=== PATIENT | male | born 1955 | race Two or more races ===

== ENCOUNTER 2019-05-13 21:52 | Inpatient (IN) | payer BC ==
[~2019-05-13] VITALS: Ht 180.3 cm; Wt 83.1 kg
[~2019-05-13 21:52] MED LIST: FLUO20CA19 OR; GABA600T PO; LAM100T PO; LAMO200T2 OR; NOR10T GT
[2019-05-14] MEDS ORDERED: MORPHINE SULFATE 10 MG/ML INJ 1ML SDV IM ONE ×2 (03:00→05:45)
[2019-05-14] MEDS ORDERED: VANCOMYCIN 1GM/250ML 250 ML IV ONE (03:00)
[2019-05-14 03:33] LABS: Basophils # (auto) 0 uL; Basophils % (auto) 0.2 % (0.0-2.0); Eosinophils # (auto) 0 uL; Eosinophils % (auto) 0.3 % (0.0-7.0); Hematocrit 38.5 % (41.0-53.0); Hemoglobin 13.4 g/dL (13.5-17.5); Lymphocytes # (auto) 0.5 uL; Lymphocytes % (auto) 4.8 % (10.0-50.0); Mean Corpuscular Hemoglobin 35.1 pg (28.0-32.0); Mean Corpuscular Hgb Conc. 34.9 g/dL (32.0-36.0); Mean Corpuscular Volume 100.7 fL (80.0-100.0); Monocytes # (auto) 0.8 uL; Monocytes % (auto) 8.3 % (0.0-12.0); Neutrophils # (auto) 8.4 uL; Neutrophils % (auto) 86.4 % (37.0-80.0); Platelet Count (auto) 242 10^3/uL (140-450); Red Blood Cells 3.83 10^6/uL (4.5-5.90); Red Cell Distribution Width 12.5 % (11.8-14.3); White Blood Cell 9.7 10^3/uL (4.4-10.8)
[2019-05-14 03:46] LABS: Albumin 3.5 g/dL (3.4-5.0); BUN/Creatinine Ratio 16.5; Potassium 3.8 mmol/L (3.5-5.1)
[2019-05-14 03:47] LABS: INR 1.01 (0.9-1.15)
[2019-05-14 03:49] LABS: Bilirubin, Total 0.9 mg/dL (0.2-1.0)
[2019-05-14] MEDS ORDERED: IOHEXOL 300 MG/ML 100ML BOTTLE IJ ONE (05:12)
[2019-05-14] MEDS ORDERED: ONDANSETRON HCL 4 MG/2 ML VIAL IV ONE (05:45)
[2019-05-14] MEDS: SODIUM CHLORIDE 0.9% 1,000 ML IV SCH (07:35)
[2019-05-14] MEDS ORDERED: ONDANSETRON HCL 4 MG/2 ML VIAL IV PRN (07:45)
[2019-05-14] MEDS ORDERED: VANCOMYCIN PER PHARMACY 0 MG IV SCH (07:45)
[2019-05-14] MEDS ORDERED: ACETAMINOPHEN 325 MG TAB PO PRN (07:45)
[2019-05-14] MEDS ORDERED: MORPHINE SULFATE 4 MG/ML SYR/VIAL IV PRN (07:45)
[2019-05-14] MEDS ORDERED: DOCUSATE SOD 100 MG CAP PO PRN (07:45)
[2019-05-14] MEDS ORDERED: HYDROcodone-ACET 5/325MG TAB PO PRN (07:45)
[2019-05-14 09:37] VITALS: BP 110/61
[2019-05-14] MEDS ORDERED: OME20T PO (09:44)
[2019-05-14 13:00] VITALS: BP 100/58
[2019-05-14] MEDS: PIPERACILLIN-TAZOB 3.375GM 100 ML IV SCH ×2 (13:53→22:09)
[2019-05-14] MEDS ORDERED: HYDR-392 PO (14:47)
[2019-05-14] MEDS ORDERED: TRAZ150T79 PO (14:47)
[2019-05-14] MEDS ORDERED: IBUP800T24 PO (14:47)
[2019-05-14] MEDS ORDERED: DULO30CA PO (14:47)
--- NOTE | 2019-05-14 15:13 | NUR ---
Declining Pod. consult Patient came in with cellulitis. 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 He is seen regularly by a Operations And Maintenance Supervisor outpatient (Dr. Guevara at [facility]). Dr. Velasco saw the patient today and put in a consult for a lecturer of portuguese (Dr. Alatorre). The patient's is currently here visiting and stated they would like to cancel the podiatry consult because they already have a lecturer of portuguese following him and don't want to get charged for the consult. She said that he is here due to the cellulitis and getting antibiotics. This nurse notified the community health education coordinator, Nina, of patient's [facility] and to tell Dr. Alatorre not to see the patient.
[2019-05-14] MEDS: HYDROcodone-ACET 7.5/325MG TAB PO PRN (15:24)
[2019-05-14 17:00] VITALS: BP 109/62
[2019-05-14] MEDS: VANCOMYCIN 1GM/250ML 250 ML IV SCH (17:57)
--- NOTE | 2019-05-14 21:06 | NUR ---
HOSPITALIST CHARLIE REGARDING ELEVATED BLOOD PRESSURE 159/124, HR 63. NO PRN OR SCHEDULED BLOOD PRESSURE MEDICATION ORDERED. Addendum: 05/14/19 at 2107 by Denise Morales RN WRONG PATIENT
--- NOTE | 2019-05-14 21:07 | NUR ---
HOSPITALIST PAGED PATIENT REQUESTING EXTRA DOSE OF NORCO.
[2019-05-14 21:24] VITALS: BP 112/64
[2019-05-14] MEDS ORDERED: lamoTRIgine 100 MG TAB PO SCH (22:00)
[2019-05-14] MEDS ORDERED: HYDROcodone-ACET 5/325MG TAB PO ONE (22:00)
[2019-05-14] MEDS ORDERED: traZODone HCL 50 MG TAB PO SCH (22:00)
[2019-05-14] MEDS: GABAPENTIN 400 MG CAP PO SCH (22:08)
[2019-05-14] MEDS: IBUPROFEN 800 MG TAB PO PRN (22:11)
[2019-05-15] MEDS: SODIUM CHLORIDE 0.9% 1,000 ML IV SCH ×2 (00:15→17:47)
[2019-05-15] MEDS: VANCOMYCIN 1GM/250ML 250 ML IV SCH (04:43)
[2019-05-15 05:30] VITALS: BP 97/58
[2019-05-15] MEDS: PIPERACILLIN-TAZOB 3.375GM 100 ML IV SCH ×2 (06:18→14:57)
[2019-05-15] MEDS: GABAPENTIN 400 MG CAP PO SCH ×2 (06:18→14:57)
--- NOTE | 2019-05-15 06:19 | NUR ---
PATIENT SLEPT THROUGHOUT NIGHT WITH NO S/S OF DISTRESS NOTED. NO COMPLAINTS OF PAIN AT THIS TIME.
[2019-05-15 09:00] VITALS: BP 98/65
[2019-05-15] MEDS ORDERED: DULoxetine HCL 30 MG CAP PO SCH (10:00)
[2019-05-15] MEDS ORDERED: PANTOPRAZOLE 40 MG TAB PO SCH (10:00)
[2019-05-15] MEDS: IBUPROFEN 800 MG TAB PO PRN ×2 (10:43→18:24)
[2019-05-15] MEDS: HYDROcodone-ACET 7.5/325MG TAB PO PRN ×2 (10:44→18:24)
--- NOTE | 2019-05-15 12:00 | NUR ---
saw pt/discharge this evening Dr. Velasco saw the patient and discussed discharge with oral antibiotics. Patient and spouse (a nurse practitioner) agreed but expressed concern that they wanted him to stay the rest of the day to receive the day's antibiotics. He has Zosyn at 1400 and Vancomycin at 1700. Will discharge patient after the Vancomycin.
[2019-05-15 13:00] VITALS: BP 102/59
[2019-05-15 17:00] VITALS: BP 102/69
[2019-05-15] MEDS ORDERED: VANCOMYCIN 1GM/250ML 250 ML IV SCH (17:00)
--- NOTE | 2019-05-15 18:43 | NUR ---
Discharge Went over discharge paperwork with patient. Prescription given to spouse to fill. Antibiotics done running. Removed IV. Removed ID band. Patient's at bedside.
== END 2019-05-15 19:10 | disposition home or self-care (01) | DRG 603 ==
LOC: ER 21:54 → OVERFLOW 21:55 → EAST 05-14 08:57
PROVIDERS: ADMIT Hospitalist; ATTEND Hospitalist
DX: L03.116 Cellulitis of left lower limb (principal); G62.9 Polyneuropathy, unspecified; L02.416 Cutaneous abscess of left lower limb; Z87.39 Personal history of other diseases of the musculoskeletal system and connective tissue; Z88.8 Allergy status to other drugs, medicaments and biological substances
CPT/HCPCS: 36415; 73630; 73701; 80053; 80202; 82962; 83605; 84550; 85025; 85610; 87040; 93925; 93971; 96365; 96372; 96375; G0378; J2405; J2543

== ENCOUNTER 2023-03-15 10:41 | Inpatient (IN) | payer MEDICARE, BC ==
[~2023-03-15] VITALS: Ht 180.3 cm; Wt 164.2 kg
[~2023-03-15 10:41] MED LIST changes: +DULO30CA PO; -FLUO20CA19 OR; +HYDR-392 PO; +IBUP-1456 PO; -LAMO200T2 OR; -NOR10T GT; +OME20T PO; +TRAZ1TAB12 PO
[2023-03-15] MEDS ORDERED: SODIUM CHLORIDE 0.9% 1,000 ML IV ONE (11:00)
[2023-03-15] MEDS ORDERED: cefTRIAXone 1GM/50ML D5W 50 ML IV ONE (11:00)
[2023-03-15] MEDS ORDERED: levoFLOXacin 500MG 100 ML IV ONE (11:00)
[2023-03-15 11:15] LABS: Basophils # (auto) 0 10 ^3/uL (0-0.2); Basophils % (auto) 0.2 % (0.0-2.0); Eosinophils # (auto) 0 10 ^3/uL (0-0.8); Eosinophils % (auto) 0.6 % (0.0-7.0); Hematocrit 32.7 % (41.0-53.0); Hemoglobin 10.9 g/dL (13.5-17.5); Lymphocytes # (auto) 0.5 10 ^3/uL (0.4-5.4); Lymphocytes % (auto) 7.2 % (10.0-50.0); Mean Corpuscular Hemoglobin 31.8 pg (28.0-32.0); Mean Corpuscular Hgb Conc. 33.2 g/dL (32.0-36.0); Mean Corpuscular Volume 95.7 fL (80.0-100.0); Monocytes # (auto) 0.7 10 ^3/uL (0-1.3); Neutrophils # (auto) 5.7 10 ^3/uL (1.6-8.6); Nucleated Red Blood Cells % 0.1 %; Red Blood Cells 3.42 10^6/uL (4.5-5.90); Red Cell Distribution Width 14.5 % (11.8-14.3)
[2023-03-15 11:35] LABS: Alanine Aminotransferase 16 U/L (7-40); Albumin 3.8 g/dL (3.2-4.8); Alkaline Phosphatase 134 U/L (46-116); Anion Gap 6 (5-15); Aspartate Aminotransferase 30 U/L (13-40); BUN/Creatinine Ratio 13.4 (10.0-20.0); Blood Urea Nitrogen 15 mg/dL (9-23); Calcium 8.6 mg/dL (8.7-10.4); Carbon Dioxide 25 mmol/L (20-30); Chloride 108 mmol/L (98-107); Glucose 144 mg/dL (74-106); Magnesium 2.2 mg/dL (1.6-2.6); Potassium 4.2 mmol/L (3.5-5.1); Sodium 139 mmol/L (136-145)
[2023-03-15 11:36] LABS: Bilirubin, Total 0.8 mg/dL (0.2-1.0); Total Protein 6.1 g/dL (5.7-8.2)
[2023-03-15 11:56] LABS: Urine Bacteria NONE SEEN /hpf (None Seen); Urine Blood Negative /uL (Negative); Urine Clarity Clear (Clear); Urine Color Yellow (Yellow); Urine Hyaline Cast FEW /lpf (0 - 2); Urine Mucus FEW (None Seen); Urine Protein, UAD 2+ (Negative); Urine Specific Gravity 1.041 (1.001-1.035); Urine WBC 2 /hpf (0 - 3); Urine pH 6.5 (5.0-8.0)
[2023-03-15 12:14] LABS: COVID19 ANTIGEN SOFIA FIA NEGATIVE (NEGATIVE); Rapid Influenza A Negative (Negative); Rapid Influenza B Negative (Negative)
[2023-03-15] MEDS ORDERED: ACETAMINOPHEN 325 MG TAB PO PRN (15:30)
[2023-03-15] MEDS ORDERED: ONDANSETRON HCL 4 MG/2 ML VIAL IV PRN (15:30)
[2023-03-15] MEDS ORDERED: DOCUSATE SOD 100 MG CAP PO PRN (15:30)
[2023-03-15] MEDS ORDERED: LURA1TAB PO (15:50)
[2023-03-15] MEDS ORDERED: HYDR-4069 PO (15:50)
[2023-03-15] MEDS ORDERED: TRAZ-228 PO (15:50)
[2023-03-15] MEDS ORDERED: ATOM40CA6 PO (15:50)
[2023-03-15] MEDS ORDERED: LAMO200T34 PO (15:50)
[2023-03-15] MEDS ORDERED: HYDR1CAP27 PO (15:50)
[2023-03-15] MEDS ORDERED: LURA60TA PO (15:50)
[2023-03-15] MEDS ORDERED: PRAZ2CAP2 PO (15:50)
[2023-03-15] MEDS ORDERED: GABA-339 PO (15:50)
[2023-03-15 15:56] VITALS: BP 99/67; PULSE 68; RESP 20; TEMP 98.8; O2SAT 87
[2023-03-15] MEDS ORDERED: IOHEXOL 350 MG/ML 100ML IJ ONE (17:30)
[2023-03-15] MEDS: LURASIDONE HYDROCHLORIDE 60 MG PO SCH (18:00)
[2023-03-15 18:21] VITALS: PULSE 70; RESP 20; O2SAT 94
[2023-03-15] MEDS: IPRATROPIUM BROM 0.5 MG/2.5ML INH SOL NEB SCH (18:21)
[2023-03-15] MEDS: ALBUTEROL MEDNEB 2.5 mg/3ml NEB NEB SCH (18:21)
[2023-03-15 18:29] VITALS: PULSE 72; RESP 18; O2SAT 99
[2023-03-15 20:30] VITALS: PULSE 74; RESP 28; O2SAT 93
[2023-03-15 21:00] VITALS: BP 102/63; PULSE 73; RESP 15; TEMP 98.2; O2SAT 94
[2023-03-15] MEDS: GABAPENTIN 400 MG CAP PO SCH (21:20)
[2023-03-15] MEDS: hydrOXYzine 25 MG TAB or CAP PO SCH (21:20)
[2023-03-15] MEDS: lamoTRIgine 100 MG TAB PO SCH (21:21)
[2023-03-15] MEDS: DOXYCYCLINE 100MG/250ML 250 ML IV SCH (21:33)
[2023-03-15 22:00] VITALS: BP 102/63; PULSE 73; RESP 18; TEMP 98.2; O2SAT 93
[2023-03-15] MEDS: traZODone HCL 50 MG TAB PO SCH (22:53)
[2023-03-16] VITALS (16 sets, daily range): BP systolic 100–124; BP diastolic 56–66; PULSE 71–85; RESP 17–22; TEMP 98.1–99.8; O2SAT 91–99
[2023-03-16] MEDS: GABAPENTIN 400 MG CAP PO SCH ×3 (05:40→21:51)
[2023-03-16] MEDS: ALBUTEROL MEDNEB 2.5 mg/3ml NEB NEB SCH ×3 (07:03→21:59)
[2023-03-16] MEDS: IPRATROPIUM BROM 0.5 MG/2.5ML INH SOL NEB SCH ×3 (07:03→22:00)
[2023-03-16 07:12] LABS: Basophils # (auto) 0 10 ^3/uL (0-0.2); Basophils % (auto) 0.3 % (0.0-2.0); Eosinophils # (auto) 0.1 10 ^3/uL (0-0.8); Eosinophils % (auto) 1.1 % (0.0-7.0); Hematocrit 31.2 % (41.0-53.0); Hemoglobin 10.4 g/dL (13.5-17.5); Lymphocytes # (auto) 0.5 10 ^3/uL (0.4-5.4); Mean Corpuscular Hemoglobin 31.8 pg (28.0-32.0); Mean Corpuscular Hgb Conc. 33.3 g/dL (32.0-36.0); Mean Corpuscular Volume 95.6 fL (80.0-100.0); Monocytes # (auto) 0.9 10 ^3/uL (0-1.3); Monocytes % (auto) 11.4 % (0.0-12.0); Neutrophils # (auto) 6.2 10 ^3/uL (1.6-8.6); Neutrophils % (auto) 80.2 % (37.0-80.0); Nucleated Red Blood Cells % 0.1 %; Red Blood Cells 3.26 10^6/uL (4.5-5.90); Red Cell Distribution Width 14.2 % (11.8-14.3); White Blood Cell 7.7 10^3/uL (4.4-10.8)
[2023-03-16 07:50] LABS: Alanine Aminotransferase 17 U/L (7-40); Albumin 3.5 g/dL (3.2-4.8); Alkaline Phosphatase 126 U/L (46-116); Anion Gap 7 (5-15); Aspartate Aminotransferase 26 U/L (13-40); BUN/Creatinine Ratio 14.1 (10.0-20.0); Bilirubin, Total 0.6 mg/dL (0.2-1.0); Blood Urea Nitrogen 11 mg/dL (9-23); Calcium 8.6 mg/dL (8.5-10.1); Carbon Dioxide 24 mmol/L (20-30); Chloride 107 mmol/L (98-107); Glucose 109 mg/dL (74-106); Potassium 4.1 mmol/L (3.5-5.1); Sodium 138 mmol/L (136-145); Total Protein 5.7 g/dL (5.7-8.2)
[2023-03-16] MEDS: hydrOXYzine 25 MG TAB or CAP PO SCH ×2 (08:43→21:50)
[2023-03-16] MEDS: lamoTRIgine 100 MG TAB PO SCH ×2 (08:43→21:50)
[2023-03-16] MEDS: PRAZOSIN HCL 1 MG CAP PO SCH (08:45)
[2023-03-16] MEDS: ATOMOXETINE HCL 40 MG PO SCH (08:55)
[2023-03-16] MEDS ORDERED: cefTRIAXone 1GM/50ML D5W 50 ML IV SCH (09:00)
[2023-03-16] MEDS ORDERED: AZITHROMYCIN 500MG/ 250ML 250 ML IV SCH (10:00)
[2023-03-16] MEDS: HYDROcodone-ACET 7.5/325MG TAB PO PRN ×2 (10:33→16:31)
[2023-03-16] MEDS: DOXYCYCLINE 100MG/250ML 250 ML IV SCH ×3 (10:33→22:05)
[2023-03-16] MEDS ORDERED: POTASSIUM CHL 20 Meq TABLET PO ONE (11:15)
[2023-03-16] MEDS ORDERED: FUROSEMIDE 20 MG/2 ML VIAL IV ONE (11:15)
[2023-03-16] MEDS: FUROSEMIDE 20 MG/2 ML VIAL IV SCH (17:34)
[2023-03-16] MEDS: LURASIDONE HYDROCHLORIDE 60 MG PO SCH (17:38)
[2023-03-16] MEDS ORDERED: ALBUTEROL MEDNEB 2.5 mg/3ml NEB ONE (17:57)
[2023-03-16] MEDS ORDERED: IPRATROPIUM BROM 0.5 MG/2.5ML INH SOL ONE (17:57)
[2023-03-16] MEDS ORDERED: IPRATROPIUM BROM 0.5 MG/2.5ML INH SOL NEB SCH (18:00)
[2023-03-16] MEDS ORDERED: ALBUTEROL MEDNEB 2.5 mg/3ml NEB NEB SCH (18:00)
[2023-03-16] MEDS: POTASSIUM CHL 10 Meq TABLET PO SCH (21:51)
[2023-03-16] MEDS: traZODone HCL 50 MG TAB PO SCH (22:04)
[2023-03-17] VITALS (20 sets, daily range): BP systolic 94–112; BP diastolic 55–67; PULSE 66–93; RESP 16–21; TEMP 97.7–99.6; O2SAT 64–98
[2023-03-17] MEDS: ALBUTEROL MEDNEB 2.5 mg/3ml NEB NEB SCH ×6 (02:20→22:21)
[2023-03-17] MEDS: IPRATROPIUM BROM 0.5 MG/2.5ML INH SOL NEB SCH ×6 (02:20→22:21)
[2023-03-17] MEDS: GABAPENTIN 400 MG CAP PO SCH ×3 (05:32→21:26)
[2023-03-17] MEDS: FUROSEMIDE 20 MG/2 ML VIAL IV SCH (05:32)
[2023-03-17 05:53] LABS: Basophils # (auto) 0 10 ^3/uL (0-0.2); Basophils % (auto) 0.3 % (0.0-2.0); Eosinophils # (auto) 0.1 10 ^3/uL (0-0.8); Eosinophils % (auto) 1.8 % (0.0-7.0); Hematocrit 32.6 % (41.0-53.0); Lymphocytes # (auto) 0.6 10 ^3/uL (0.4-5.4); Lymphocytes % (auto) 7.5 % (10.0-50.0); Mean Corpuscular Hemoglobin 32.4 pg (28.0-32.0); Mean Corpuscular Hgb Conc. 33.8 g/dL (32.0-36.0); Mean Corpuscular Volume 95.9 fL (80.0-100.0); Monocytes # (auto) 0.8 10 ^3/uL (0-1.3); Monocytes % (auto) 10.2 % (0.0-12.0); Neutrophils # (auto) 6.5 10 ^3/uL (1.6-8.6); Neutrophils % (auto) 80.2 % (37.0-80.0); Red Cell Distribution Width 14.2 % (11.8-14.3); White Blood Cell 8.1 10^3/uL (4.4-10.8)
[2023-03-17 06:00] LABS: Anion Gap 7 (5-15); Carbon Dioxide 27 mmol/L (20-30); Chloride 104 mmol/L (98-107); Sodium 138 mmol/L (136-145)
[2023-03-17 06:01] LABS: Calcium 8.9 mg/dL (8.7-10.4)
[2023-03-17 06:06] LABS: BUN/Creatinine Ratio 10.3 (10.0-20.0); Blood Urea Nitrogen 9 mg/dL (9-23); Glucose 106 mg/dL (74-106)
[2023-03-17 06:07] LABS: Magnesium 2.1 mg/dL (1.6-2.6)
[2023-03-17] MEDS: PRAZOSIN HCL 1 MG CAP PO SCH (10:00)
[2023-03-17] MEDS: ATOMOXETINE HCL 40 MG PO SCH (10:00)
[2023-03-17] MEDS: hydrOXYzine 25 MG TAB or CAP PO SCH ×2 (10:01→21:26)
[2023-03-17] MEDS: POTASSIUM CHL 10 Meq TABLET PO SCH (10:01)
[2023-03-17] MEDS: lamoTRIgine 100 MG TAB PO SCH ×2 (10:01→21:26)
[2023-03-17] MEDS ORDERED: DOXYCYCLINE 100 MG TAB/CAP PO SCH (11:00)
[2023-03-17] MEDS: HYDROcodone-ACET 7.5/325MG TAB PO PRN ×2 (12:30→16:53)
[2023-03-17] MEDS ORDERED: methylPREDNISolone SOD SUCC 125 MG/2 ML VL IV ONE (13:45)
[2023-03-17] MEDS: DOXYCYCLINE 100MG/250ML 250 ML IV SCH (14:29)
[2023-03-17] MEDS: LURASIDONE HYDROCHLORIDE 60 MG PO SCH (17:31)
[2023-03-17] MEDS: methylPREDNISolone SOD SUCC 40 MG/ML VL IV SCH (21:25)
[2023-03-17] MEDS: traZODone HCL 50 MG TAB PO SCH (21:25)
[2023-03-18] VITALS (19 sets, daily range): BP systolic 90–106; BP diastolic 46–70; PULSE 63–120; RESP 16–22; TEMP 97.3–97.6; O2SAT 92–99
[2023-03-18] MEDS: DOXYCYCLINE 100MG/250ML 250 ML IV SCH ×2 (02:08→14:26)
[2023-03-18] MEDS: IPRATROPIUM BROM 0.5 MG/2.5ML INH SOL NEB SCH ×6 (02:34→22:27)
[2023-03-18] MEDS: ALBUTEROL MEDNEB 2.5 mg/3ml NEB NEB SCH ×6 (02:34→22:27)
[2023-03-18 05:50] LABS: Anion Gap 10 (5-15); Carbon Dioxide 25 mmol/L (20-30); Chloride 103 mmol/L (98-107); Potassium 3.8 mmol/L (3.5-5.1); Sodium 138 mmol/L (136-145)
[2023-03-18 05:55] LABS: Basophils # (auto) 0 10 ^3/uL (0-0.2); Eosinophils # (auto) 0 10 ^3/uL (0-0.8); Hematocrit 35.9 % (41.0-53.0); Lymphocytes # (auto) 0.3 10 ^3/uL (0.4-5.4); Lymphocytes % (auto) 5.8 % (10.0-50.0); Mean Corpuscular Hemoglobin 32.1 pg (28.0-32.0); Mean Corpuscular Hgb Conc. 33.4 g/dL (32.0-36.0); Mean Corpuscular Volume 96.2 fL (80.0-100.0); Monocytes # (auto) 0.1 10 ^3/uL (0-1.3); Monocytes % (auto) 1.8 % (0.0-12.0); Neutrophils # (auto) 5.5 10 ^3/uL (1.6-8.6); Neutrophils % (auto) 92.4 % (37.0-80.0); Red Blood Cells 3.73 10^6/uL (4.5-5.90); White Blood Cell 5.9 10^3/uL (4.4-10.8)
[2023-03-18 05:56] LABS: BUN/Creatinine Ratio 18.1 (10.0-20.0); Blood Urea Nitrogen 15 mg/dL (9-23); Glucose 191 mg/dL (74-106)
[2023-03-18 05:57] LABS: Magnesium 2.3 mg/dL (1.6-2.6)
[2023-03-18] MEDS: GABAPENTIN 400 MG CAP PO SCH ×3 (06:00→21:38)
[2023-03-18 08:11] LABS: Erythrocyte Sedimentation Rate 91 mm/hr (0-20)
[2023-03-18] MEDS: ATOMOXETINE HCL 40 MG PO SCH (10:00)
[2023-03-18] MEDS: methylPREDNISolone SOD SUCC 40 MG/ML VL IV SCH ×2 (10:03→21:37)
[2023-03-18] MEDS: PRAZOSIN HCL 1 MG CAP PO SCH ×2 (10:11→10:21)
[2023-03-18] MEDS: lamoTRIgine 100 MG TAB PO SCH ×2 (10:15→21:38)
[2023-03-18] MEDS: hydrOXYzine 25 MG TAB or CAP PO SCH ×2 (10:16→21:38)
[2023-03-18] MEDS: HYDROcodone-ACET 7.5/325MG TAB PO PRN ×2 (10:26→18:30)
[2023-03-18] MEDS: LURASIDONE HYDROCHLORIDE 60 MG PO SCH (18:00)
[2023-03-18] MEDS: traZODone HCL 50 MG TAB PO SCH (21:38)
[2023-03-19] VITALS (20 sets, daily range): BP systolic 95–103; BP diastolic 47–63; PULSE 56–76; RESP 15–22; TEMP 97.5–97.9; O2SAT 16–99
[2023-03-19] MEDS: HYDROcodone-ACET 7.5/325MG TAB PO PRN ×3 (02:14→18:25)
[2023-03-19] MEDS: DOXYCYCLINE 100MG/250ML 250 ML IV SCH ×2 (02:14→14:27)
[2023-03-19] MEDS: IPRATROPIUM BROM 0.5 MG/2.5ML INH SOL NEB SCH ×6 (02:46→22:20)
[2023-03-19] MEDS: ALBUTEROL MEDNEB 2.5 mg/3ml NEB NEB SCH ×6 (02:46→22:20)
[2023-03-19] MEDS: GABAPENTIN 400 MG CAP PO SCH ×3 (05:55→21:39)
[2023-03-19 06:03] LABS: INR 1.14 (0.9-1.15); Prothrombin Time 11.9 sec (9.3-11.8)
[2023-03-19] MEDS: ATOMOXETINE HCL 40 MG PO SCH (10:00)
[2023-03-19] MEDS: PRAZOSIN HCL 1 MG CAP PO SCH (10:00)
[2023-03-19] MEDS: hydrOXYzine 25 MG TAB or CAP PO SCH ×2 (10:25→21:39)
[2023-03-19] MEDS: methylPREDNISolone SOD SUCC 40 MG/ML VL IV SCH ×2 (10:25→21:38)
[2023-03-19] MEDS: lamoTRIgine 100 MG TAB PO SCH ×2 (11:01→21:39)
[2023-03-19] MEDS ORDERED: EPINEPHrine HCL 1 MG/1 ML AMP ONE (11:56)
[2023-03-19] MEDS ORDERED: LIDOCAINE 2% JELLY 11ml (GLYDO) ONE (11:56)
[2023-03-19] MEDS ORDERED: SODIUM CHLORIDE LOCK 10 ML ONE (11:56)
[2023-03-19] MEDS ORDERED: LIDOCAINE 2%HCL (LOCAL ANESTH.) INJ 20ML MDV ONE (11:56)
[2023-03-19] MEDS ORDERED: GLYCOPYRROLATE 0.2 MG/ML 1ML VIAL ONE (11:57)
[2023-03-19] MEDS: fentaNYL CITRATE 100 MCG/2 ML VL ONE ×4 (12:09→12:22)
[2023-03-19] MEDS: MIDAZOLAM HCL 5 MG/ML-1ML VIAL ONE ×3 (12:09→12:18)
[2023-03-19] MEDS: LURASIDONE HYDROCHLORIDE 60 MG PO SCH (18:00)
[2023-03-19] MEDS: traZODone HCL 50 MG TAB PO SCH (21:39)
[2023-03-20] VITALS (16 sets, daily range): BP systolic 103–106; BP diastolic 58–71; PULSE 56–78; RESP 16–20; TEMP 97.7–98.2; O2SAT 93–98
[2023-03-20] MEDS: DOXYCYCLINE 100MG/250ML 250 ML IV SCH ×2 (01:07→13:20)
[2023-03-20] MEDS: IPRATROPIUM BROM 0.5 MG/2.5ML INH SOL NEB SCH ×6 (02:37→22:55)
[2023-03-20] MEDS: ALBUTEROL MEDNEB 2.5 mg/3ml NEB NEB SCH ×6 (02:37→22:55)
[2023-03-20] MEDS: HYDROcodone-ACET 7.5/325MG TAB PO PRN ×3 (04:38→19:12)
[2023-03-20] MEDS: GABAPENTIN 400 MG CAP PO SCH ×3 (05:47→21:56)
[2023-03-20] MEDS: lamoTRIgine 100 MG TAB PO SCH ×2 (08:59→21:56)
[2023-03-20] MEDS: hydrOXYzine 25 MG TAB or CAP PO SCH ×2 (09:04→21:56)
[2023-03-20] MEDS: methylPREDNISolone SOD SUCC 40 MG/ML VL IV SCH ×2 (09:39→22:13)
[2023-03-20] MEDS: PRAZOSIN HCL 1 MG CAP PO SCH ×2 (09:39→17:37)
[2023-03-20] MEDS: ATOMOXETINE HCL 40 MG PO SCH (10:00)
[2023-03-20] MEDS: LURASIDONE HYDROCHLORIDE 60 MG PO SCH (18:00)
[2023-03-20] MEDS: traZODone HCL 50 MG TAB PO SCH (21:56)
[2023-03-21] VITALS (19 sets, daily range): BP systolic 104–110; BP diastolic 50–69; PULSE 54–76; RESP 16–19; TEMP 36.6; O2SAT 93–100
[2023-03-21] MEDS: DOXYCYCLINE 100MG/250ML 250 ML IV SCH ×2 (01:12→16:16)
[2023-03-21] MEDS: IPRATROPIUM BROM 0.5 MG/2.5ML INH SOL NEB SCH ×6 (01:47→22:37)
[2023-03-21] MEDS: ALBUTEROL MEDNEB 2.5 mg/3ml NEB NEB SCH ×6 (01:47→22:37)
[2023-03-21] MEDS: HYDROcodone-ACET 7.5/325MG TAB PO PRN ×4 (04:11→21:30)
[2023-03-21] MEDS: GABAPENTIN 400 MG CAP PO SCH ×3 (05:38→21:29)
[2023-03-21] MEDS: ATOMOXETINE HCL 40 MG PO SCH (10:00)
[2023-03-21] MEDS: hydrOXYzine 25 MG TAB or CAP PO SCH ×2 (10:19→21:28)
[2023-03-21] MEDS: methylPREDNISolone SOD SUCC 40 MG/ML VL IV SCH ×2 (10:19→21:30)
[2023-03-21] MEDS: lamoTRIgine 100 MG TAB PO SCH ×2 (10:19→21:30)
[2023-03-21] MEDS: PRAZOSIN HCL 1 MG CAP PO SCH (18:00)
[2023-03-21] MEDS: LURASIDONE HYDROCHLORIDE 60 MG PO SCH (18:00)
[2023-03-21] MEDS: traZODone HCL 50 MG TAB PO SCH (21:28)
[2023-03-22] VITALS (16 sets, daily range): BP systolic 96–196; BP diastolic 57–69; PULSE 54–76; RESP 16–18; TEMP 36.6; O2SAT 94–100
[2023-03-22] MEDS: ALBUTEROL MEDNEB 2.5 mg/3ml NEB NEB SCH ×6 (02:19→22:28)
[2023-03-22] MEDS: IPRATROPIUM BROM 0.5 MG/2.5ML INH SOL NEB SCH ×6 (02:19→22:28)
[2023-03-22] MEDS: DOXYCYCLINE 100MG/250ML 250 ML IV SCH ×2 (04:35→15:19)
[2023-03-22] MEDS: GABAPENTIN 400 MG CAP PO SCH ×3 (04:48→22:06)
[2023-03-22] MEDS: HYDROcodone-ACET 7.5/325MG TAB PO PRN ×4 (05:00→23:09)
[2023-03-22] MEDS: methylPREDNISolone SOD SUCC 40 MG/ML VL IV SCH ×2 (09:48→22:06)
[2023-03-22] MEDS: ATOMOXETINE HCL 40 MG PO SCH (10:00)
[2023-03-22] MEDS: hydrOXYzine 25 MG TAB or CAP PO SCH (11:42)
[2023-03-22] MEDS: lamoTRIgine 100 MG TAB PO SCH ×2 (11:42→22:05)
[2023-03-22] MEDS ORDERED: IPRATROPIUM BROM 0.5 MG/2.5ML INH SOL ONE (17:56)
[2023-03-22] MEDS ORDERED: ALBUTEROL MEDNEB 2.5 mg/3ml NEB ONE (17:56)
[2023-03-22] MEDS: PRAZOSIN HCL 1 MG CAP PO SCH (18:00)
[2023-03-22] MEDS: LURASIDONE HYDROCHLORIDE 60 MG PO SCH (18:00)
[2023-03-22] MEDS: traZODone HCL 50 MG TAB PO SCH (22:06)
[2023-03-23] VITALS (12 sets, daily range): BP systolic 94–120; BP diastolic 60–75; PULSE 56–77; RESP 16–20; TEMP 97.3–97.5; O2SAT 92–100
[2023-03-23] MEDS: DOXYCYCLINE 100MG/250ML 250 ML IV SCH ×2 (01:08→13:11)
[2023-03-23] MEDS: IPRATROPIUM BROM 0.5 MG/2.5ML INH SOL NEB SCH ×4 (02:04→14:39)
[2023-03-23] MEDS: ALBUTEROL MEDNEB 2.5 mg/3ml NEB NEB SCH ×4 (02:04→14:39)
[2023-03-23] MEDS: GABAPENTIN 400 MG CAP PO SCH (06:10)
[2023-03-23] MEDS: HYDROcodone-ACET 7.5/325MG TAB PO PRN ×2 (06:11→12:51)
[2023-03-23] MEDS: lamoTRIgine 100 MG TAB PO SCH (09:50)
[2023-03-23] MEDS: methylPREDNISolone SOD SUCC 40 MG/ML VL IV SCH (09:50)
[2023-03-23] MEDS: ATOMOXETINE HCL 40 MG PO SCH (09:51)
[2023-03-23] MEDS ORDERED: PRED10TA PO (11:41)
[2023-03-23] MEDS ORDERED: FLUC200T50 PO (11:41)
[2023-03-23] MEDS ORDERED: PRED20TA2 PO (11:41)
[2023-03-23] MEDS ORDERED: DOXY-286 PO (11:41)
== END 2023-03-23 15:05 | disposition home or self-care (01) | DRG 193 ==
LOC: ER 10:41 → OVERFLOW 15:47 → TELE-EAST 17:55 → EAST 03-20 11:04
PROVIDERS: ADMIT Nurse Practitioner Family; ATTEND Internal Medicine
PROC: 0B9D8ZX Drainage of Right Middle Lung Lobe, Via Natural or Artificial Opening Endoscopic, Diagnostic (ICD-10-PCS; 2023-03-19)
PROC: 0B9J8ZX Drainage of Left Lower Lung Lobe, Via Natural or Artificial Opening Endoscopic, Diagnostic (ICD-10-PCS; principal; 2023-03-19 11:52)
DX: J16.8 Pneumonia due to other specified infectious organisms (principal); J96.21 Acute and chronic respiratory failure with hypoxia; G62.9 Polyneuropathy, unspecified; Z20.822 Contact with and (suspected) exposure to COVID-19; G89.4 Chronic pain syndrome; F10.10 Alcohol abuse, uncomplicated; J98.4 Other disorders of lung; F32.A Depression, unspecified; F43.10 Post-traumatic stress disorder, unspecified; Z87.39 Personal history of other diseases of the musculoskeletal system and connective tissue; Z88.8 Allergy status to other drugs, medicaments and biological substances; Z98.84 Bariatric surgery status; Z72.0 Tobacco use
CPT/HCPCS: 31624; 36415; 71045; 71046; 71275; 80048; 80053; 81001; 82728; 82962; 83605; 83615; 83735; 83880; 84484; 85025; 85379; 85610; 85652; 86141; 86635; 87040; 87070; 87077; 87186; 87205; 87426; 87804; 93005; 93306; 94640; 96365; 96367; 99291; G0378; J0171; J0696; J1956; J2250; J3490